=== PATIENT | female | born 2000 | race Caucasian/White ===

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

== ENCOUNTER 2018-07-11 09:15 | Emergency (ER) | payer OTHER ==
[2018-07-11 10:39] VITALS: BP 124/75
== END 2018-07-11 11:15 | disposition home or self-care (01) ==
LOC: UCCORT 09:15
DX: J45.901 Unspecified asthma with (acute) exacerbation (principal); H73.893 Other specified disorders of tympanic membrane, bilateral
CPT/HCPCS: 99212; G0463

== ENCOUNTER 2019-05-20 19:10 | Emergency (ER) | payer MEDICAID, OTHER ==
[2019-05-20 20:15] VITALS: BP 125/77
[2019-05-20] MEDS ORDERED: predniSONE TAB* 20 MG PO ONE ×2 (20:30→20:31)
--- NOTE | 2019-05-20 20:38 | UC ---
Ear Complaint HPI - HPI Summary HPI Summary: 18 yo female with bilateral otalgia x 3 days hx PETs age 1 no fever or chills mild nasal congestion no CP or SOB no cough - History of Current Complaint Chief Complaint: UCEar Stated Complaint: CHANO EAR PAIN Time Seen by Provider: 05/20/19 19:53 Hx Obtained From: Patient Hx Last Menstrual Period: 04/28/19 Onset/Duration: Gradual Onset, Lasting Days Severity Initially: Moderate Severity Currently: Moderate Pain Intensity: 6 Pain Scale Used: 0-10 Numeric Aggravating Factors: Nothing Alleviating Factors: Nothing Associated Signs/Symptoms: Positive: Hearing Loss - slight - Allergies/Home Medications Allergies/Adverse Reactions: Allergies Allergy/AdvReac Type Severity Reaction Status Date / Time aluminum Allergy Hives Verified 05/20/19 20:06 lactose Allergy Diarrhea Verified 05/20/19 20:06 nickel Allergy Hives Verified 05/20/19 20:06 zinc Allergy Hives Verified 05/20/19 20:06 Home Medications: Home Medications Ibuprofen TAB* [Advil TAB*] 600 mg PO Q6H PRN 05/20/19 [History Confirmed ] Loratadine 10 mg PO BEDTIME 05/20/19 [History Confirmed 05/20/19] Propranolol HCl 80 mg PO DAILY 05/20/19 [History Confirmed 05/20/19] PMH/Surg Hx/FS Hx/Imm Hx Previously Healthy: Yes Other History Of: Negative For: HIV, Hepatitis B, Hepatitis C - Surgical History Surgical History: Yes Surgery Procedure, Year, and Place: tubes in ears in past. carpal tunnel - Family History Known Family History: Positive: Cardiac Disease, Hypertension, Diabetes Negative: Renal Disease, Blood Disorder - Social History Alcohol Use: Occasionally Substance Use Type: None Smoking Status (MU): Never Smoked Tobacco Have You Smoked in the Last Year: No Household Exposure Type: Cigarettes - Immunization History Most Recent Influenza Vaccination: Not the 2017/2017 Season Vaccination Up to Date: Yes Review of Systems All Other Systems Reviewed And Are Negative: Yes Constitutional: Positive: Negative Skin: Positive: Negative Eyes: Positive: Negative ENT: Positive: Ear Ache Respiratory: Positive: Negative Cardiovascular: Positive: Negative Gastrointestinal: Positive: Negative Genitourinary: Positive: Negative Motor: Positive: Negative Neurovascular: Positive: Negative Musculoskeletal: Positive: Negative Neurological: Positive: Negative Psychological: Positive: Negative Physical Exam Triage Information Reviewed: Yes Appearance: Well-Appearing, No Pain Distress, Well-Nourished Vital Signs: Initial Vital Signs Temp 98.2 F 05/20/19 20:12 Pulse 77 05/20/19 20:12 Resp 20 05/20/19 20:12 BP 125/77 05/20/19 20:12 Pulse Ox 99 05/20/19 20:12 Vital Signs Reviewed: Yes Eyes: Positive: Conjunctiva Clear ENT: Positive: Hearing grossly normal, TM bulging - Right bulging, left retracted. Negative: Pharyngeal erythema, Nasal congestion, Nasal drainage, TMs normal Neck: Positive: Supple, Nontender, No Lymphadenopathy Respiratory: Positive: Lungs clear, Normal breath sounds, No respiratory distress Cardiovascular: Positive: RRR, No Murmur Ear Complaint Course/Dx - Differential Dx/Diagnosis Provider Diagnosis: Bilateral serous otitis media Discharge - Sign-Out/Discharge Documenting (check all that apply): Patient Departure All imaging exams completed and their final reports reviewed: No Studies - Discharge Plan Condition: Stable Disposition: HOME Prescriptions: predniSONE [Deltasone 20 MG TAB] 40 mg PO DAILY #6 tab Patient Education Materials: Serous Otitis Media (ED) Referrals: Tamika Muniz MD [Primary Care Provider] - 1 Week (if not better) Additional Instructions: recheck for new or worsening symptoms - Billing Disposition and Condition Condition: STABLE Disposition: Home
== END 2019-05-20 20:51 | disposition home or self-care (01) ==
LOC: UCCORT 19:10
DX: H65.93 Unspecified nonsuppurative otitis media, bilateral (principal); Z77.22 Contact with and (suspected) exposure to environmental tobacco smoke (acute) (chronic)
CPT/HCPCS: 99213; G0463; J7512

== ENCOUNTER 2019-06-04 18:00 | Emergency (ER) | payer OTHER ==
[2019-06-04 18:35] VITALS: BP 120/68
--- NOTE | 2019-06-04 18:38 | UC ---
Ear Complaint HPI - HPI Summary HPI Summary: BILATERAL EARACHE, HEAD CONGESTION, SORE THROAT AND COUGH FOR PAST FEW DAYS. NO FEVER, BUT CHILLS. TRIED SUDAFED AND IBUPROFEN PRN W/ NO RELIEF. - History of Current Complaint Chief Complaint: UCRespiratory Stated Complaint: SORE THROAT/COUGH/CONGESTION Time Seen by Provider: 06/04/19 18:29 Hx Obtained From: Patient Hx Last Menstrual Period: 05/07/19 ?: No Onset/Duration: Sudden Onset, Lasting Days Severity Initially: Moderate Severity Currently: Moderate Pain Intensity: 4 - Allergies/Home Medications Allergies/Adverse Reactions: Allergies Allergy/AdvReac Type Severity Reaction Status Date / Time aluminum Allergy Hives Verified 06/04/19 18:29 lactose Allergy Diarrhea Verified 06/04/19 18:29 nickel Allergy Hives Verified 06/04/19 18:29 zinc Allergy Hives Verified 06/04/19 18:29 PMH/Surg Hx/FS Hx/Imm Hx Previously Healthy: Yes Other History Of: Negative For: HIV, Hepatitis B, Hepatitis C - Surgical History Surgical History: Yes Surgery Procedure, Year, and Place: tubes in ears in past. carpal tunnel - Family History Known Family History: Positive: Cardiac Disease, Hypertension, Diabetes Negative: Renal Disease, Blood Disorder - Social History Alcohol Use: Occasionally Substance Use Type: None Smoking Status (MU): Never Smoked Tobacco Have You Smoked in the Last Year: No Household Exposure Type: Cigarettes - Immunization History Most Recent Influenza Vaccination: Not the 2016/2017 Season Vaccination Up to Date: Yes Review of Systems All Other Systems Reviewed And Are Negative: Yes ENT: Positive: Sore Throat, Ear Ache, Sinus Congestion Respiratory: Positive: Cough Neurological: Positive: Headache Is Patient Immunocompromised?: No Physical Exam Triage Information Reviewed: Yes Appearance: Ill-Appearing, Pain Distress, Obese Vital Signs: Initial Vital Signs Temp 98.3 F 06/04/19 18:31 Pulse 79 06/04/19 18:31 Resp 16 06/04/19 18:31 BP 120/68 06/04/19 18:31 Pulse Ox 99 06/04/19 18:31 Vital Signs Reviewed: Yes Eye Exam: Normal ENT: Positive: Pharyngeal erythema - wiht PND, Nasal congestion, TM bulging - right TM, Sinus tenderness - right frontal Dental Exam: Normal Neck exam: Normal Respiratory Exam: Normal Cardiovascular Exam: Normal Cardiovascular: Positive: RRR, No Murmur, Pulses Normal Abdominal Exam: Normal Musculoskeletal Exam: Normal Neurological Exam: Normal Psychological Exam: Normal Skin Exam: Normal Ear Complaint Course/Dx - Course Course Of Treatment: HX OBTAINED, EXAM PERFORMED ,MEDS REVIEWED, - Differential Dx/Diagnosis Differential Diagnosis/HQI/PQRI: Bronchitis, Cerumen Impaction, Otitis Externa, Otitis Media, Pharyngitis, Trauma, URI Provider Diagnosis: Sinusitis, Post-nasal drip Discharge - Sign-Out/Discharge Documenting (check all that apply): Patient Departure All imaging exams completed and their final reports reviewed: No Studies - Discharge Plan Condition: Stable Disposition: HOME Prescriptions: Azithromyxin JUAN RAMON (NF) [Z-Juan Ramon (Zithromax) 250 mg tabs #6] 2 tab PO .TODAY, THEN 1 DAILY #6 tab Patient Education Materials: Sinusitis (ED) Referrals: Tamika Muniz MD [Primary Care Provider] - Additional Instructions: 1. take the medication as prescribed. 2. Increase fluid intake and salt water gargles twice a day 3. Continue with the claritin daily 4. Follow up if not improving. - Billing Disposition and Condition Condition: STABLE Disposition: Home
== END 2019-06-04 18:54 | disposition home or self-care (01) ==
LOC: UCCORT 18:00
DX: J32.9 Chronic sinusitis, unspecified (principal); R09.82 Postnasal drip
CPT/HCPCS: 99212; G0463

== ENCOUNTER 2019-11-10 13:06 | Emergency (ER) | payer OTHER ==
[2019-11-10 13:50] VITALS: BP 102/63
--- NOTE | 2019-11-10 14:17 | UC ---
Respiratory Complaint HPI - HPI Summary HPI Summary: 18 yo female presents with URI symptoms. She tells me that over the last week has had sinus pain/pressure/congestion. Over the last 2 days has had chest congestion and feeling wheezing. She has a hx of asthma and has an albuterol inhaler at home that she has been using with good relief. She does not smoke. Denies fever, rash, SOB, chest pain, abdominal pain, n/v - History of Current Complaint Chief Complaint: UCGeneralIllness Stated Complaint: URI HEADACHE Time Seen by Provider: 11/10/19 14:17 Hx Obtained From: Patient Hx Last Menstrual Period: 10/23/19 Onset/Duration: Gradual Onset Severity Initially: Mild Severity Currently: Moderate Pain Intensity: 5 Pain Scale Used: 0-10 Numeric - Allergies/Home Medications Allergies/Adverse Reactions: Allergies Allergy/AdvReac Type Severity Reaction Status Date / Time aluminum Allergy Hives Verified 11/10/19 13:51 lactose Allergy Diarrhea Verified 11/10/19 13:51 nickel Allergy Hives Verified 11/10/19 13:51 zinc Allergy Hives Verified 11/10/19 13:51 PMH/Surg Hx/FS Hx/Imm Hx Respiratory History: Asthma Psychological History: Anxiety Other History Of: Negative For: HIV, Hepatitis B, Hepatitis C - Surgical History Surgical History: Yes Surgery Procedure, Year, and Place: tubes in ears in past. carpal tunnel right - Family History Known Family History: Positive: Cardiac Disease, Hypertension, Diabetes Negative: Renal Disease, Blood Disorder - Social History Lives: With Family Alcohol Use: Occasionally Substance Use Type: None Smoking Status (MU): Never Smoked Tobacco Have You Smoked in the Last Year: No Household Exposure Type: Cigarettes - Immunization History Most Recent Influenza Vaccination: Not the 2017/2017 Season Vaccination Up to Date: Yes Review of Systems All Other Systems Reviewed And Are Negative: No Constitutional: Positive: Negative Skin: Positive: Negative Eyes: Positive: Negative ENT: Positive: Nasal Discharge, Sinus Congestion, Sinus Pain/Tenderness Respiratory: Positive: Cough Cardiovascular: Positive: Negative Gastrointestinal: Positive: Negative Neurological: Positive: Negative Psychological: Positive: Negative Physical Exam - Summary Physical Exam Summary: GENERAL: NAD. WDWN. No pain distress. SKIN: No rashes, sores, lesions, or open wounds. HEENT: Head: AT/NC Eyes: Conjunctiva clear without inflammation or discharge. Ears: Hearing grossly normal. TMs intact, no bulging, erythema, or edema. Nose: Nasal mucosa pink and moist. TTP maxillary and frontal sinus. Throat: Posterior oropharynx without exudates, erythema, or tonsillar enlargement. Uvula midline. NECK: Supple. Nontender. No lymphadenopathy. CHEST: Mild wheezing throughout. No r/r. No accessory muscle use. Breathing comfortably and in no distress. CV: RRR. Pulses intact. Cap refill <2seconds NEURO: Alert. PSYCH: Age appropriate behavior. Triage Information Reviewed: Yes Vital Signs: Initial Vital Signs Temp 98.8 F 11/10/19 13:48 Pulse 78 11/10/19 13:48 Resp 17 11/10/19 13:48 BP 102/63 11/10/19 13:48 Pulse Ox 100 11/10/19 13:48 Vital Signs Reviewed: Yes Respiratory Course/Dx - Course Course Of Treatment: Suspect bronchitis. - Differential Dx/Diagnosis Provider Diagnosis: Bronchitis Discharge ED - Sign-Out/Discharge Documenting (check all that apply): Patient Departure All imaging exams completed and their final reports reviewed: No Studies - Discharge Plan Condition: Stable Disposition: HOME Prescriptions: DOXYcycline CAP(*) [DOXYcycline 100MG CAP(*)] 100 mg PO BID #14 cap predniSONE 20 mg TAB [Deltasone 20 MG TAB*] 40 mg PO DAILY #10 tab Patient Education Materials: Acute Bronchitis (ED) Referrals: Tamika Muniz MD [Primary Care Provider] - Additional Instructions: If you develop a fever, shortness of breath, chest pain, new or worsening symptoms - please call your PCP or go to the ED immediately. Continue using your albuterol inhaler at home - Billing Disposition and Condition Condition: STABLE Disposition: Home - Attestation Statements Provider Attestation: I was available for consult. This patient was seen by the CHRIS. The patient was not presented to, seen by, or examined by me. -Gavin
== END 2019-11-10 14:41 | disposition home or self-care (01) ==
LOC: UCEAST 13:06
DX: J40 Bronchitis, not specified as acute or chronic (principal); J45.909 Unspecified asthma, uncomplicated; R09.81 Nasal congestion; Z91.011 Allergy to milk products; Z91.09 Other allergy status, other than to drugs and biological substances
CPT/HCPCS: 99212; G0463

== ENCOUNTER 2019-12-04 17:01 | Emergency (ER) | payer OTHER ==
[2019-12-04 17:26] VITALS: BP 125/74
--- NOTE | 2019-12-04 18:03 | UC ---
FLU HPI - HPI Summary HPI Summary: 19 yo female presents with flu-like symptoms. She tells me that for the last 4 days she has had body aches, fatigue, nausea, sinus congestion, and a dry cough. 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 She has been taking OTC tylenol cold medication with no change in her symptoms. She did not get a flu shot this year. Denies fever, SOB, rash, abdominal pain, vomiting, dysuria. - History of Current Complaint Chief Complaint: UCGeneralIllness Stated Complaint: CONGESTION,EAR PAIN,SORE THROAT Time Seen by Provider: 12/04/19 18:03 Hx Obtained From: Patient Hx Last Menstrual Period: Onset/Duration: Sudden Onset Severity Currently: Mild Severity Initially: Mild Pain Intensity: 4 - Allergy/Home Medications Allergies/Adverse Reactions: Allergies Allergy/AdvReac Type Severity Reaction Status Date / Time aluminum Allergy Hives Verified 12/04/19 17:27 lactose Allergy Diarrhea Verified 12/04/19 17:27 nickel Allergy Hives Verified 12/04/19 17:27 zinc Allergy Hives Verified 12/04/19 17:27 Home Medications: Home Medications Ibuprofen TAB* [Motrin TAB* 600 MG] 600 mg PO Q6H PRN 12/04/19 [History Confirmed 12/04/19] PMH/Surg Hx/FS Hx/Imm Hx Respiratory History: Asthma Psychological History: Anxiety, Depression Other History Of: Negative For: HIV, Hepatitis B, Hepatitis C - Surgical History Surgical History: Yes Surgery Procedure, Year, and Place: tubes in ears in past. carpal tunnel right - Family History Known Family History: Positive: Cardiac Disease, Hypertension, Diabetes Negative: Renal Disease, Blood Disorder - Social History Alcohol Use: Weekly Substance Use Type: None Smoking Status (MU): Never Smoked Tobacco Have You Smoked in the Last Year: No Household Exposure Type: Cigarettes - Immunization History Most Recent Influenza Vaccination: Not the 2017/2017 Season Vaccination Up to Date: Yes Review of Systems All Other Systems Reviewed And Are Negative: No Constitutional: Positive: Fatigue, Other - Body aches Skin: Positive: Negative Eyes: Positive: Negative ENT: Positive: Sinus Congestion Respiratory: Positive: Cough Cardiovascular: Positive: Negative Gastrointestinal: Positive: Negative Neurological/Mental Status: Positive: Negative Psychological: Positive: Negative Physical Exam - Summary Physical Exam Summary: GENERAL: NAD. WDWN. No pain distress. SKIN: No rashes, sores, lesions, or open wounds. HEENT: Head: AT/NC Eyes: EOM intact. Conjunctiva clear without inflammation or discharge. Ears: Hearing grossly normal. TMs intact, no bulging, erythema, or edema. Nose: Nasal mucosa pink and moist. NTTP maxillary and frontal sinus. Throat: Posterior oropharynx without exudates, erythema, or tonsillar enlargement. Uvula midline. NECK: Supple. Nontender. No lymphadenopathy. CHEST: CTAB. No r/r/w. No accessory muscle use. Breathing comfortably and in no distress. CV: RRR. Pulses intact. Cap refill <2seconds NEURO: Alert. PSYCH: Age appropriate behavior. Triage Information Reviewed: Yes Vital Signs: Initial Vital Signs Temp 99.0 F 12/04/19 17:22 Pulse 66 12/04/19 17:22 Resp 16 12/04/19 17:22 BP 125/74 12/04/19 17:22 Pulse Ox 99 12/04/19 17:22 Laboratory Tests 12/04/19 12/04/19 17:59 18:01 Influenza A (Rapid) Negative Influenza B (Rapid) Negative Group A Strep Rapid Negative Vital Signs Reviewed: Yes Flu Course/Dx - Course Course Of Treatment: POC strep and flu negative. Suspect viral illness - advised supportive care - Differential Dx/Diagnosis Provider Diagnosis: Viral syndrome Discharge ED - Sign-Out/Discharge Documenting (check all that apply): Patient Departure All imaging exams completed and their final reports reviewed: No Studies - Discharge Plan Condition: Good Disposition: HOME Patient Education Materials: Viral Syndrome (ED) Forms: *Work Release Referrals: Tamika Muniz MD [Primary Care Provider] - Additional Instructions: FLU AND STREP TEST NEGATIVE TODAY Your symptoms are likely from a viral infection. Viral infections do not respond to antibiotics and are limited to the treatment of symptoms. Viral infections typically run their course in 7-10 days. Drink plenty of fluids, especially if you are running any fever. Use salt water gargles several times a day. Take over the counter acetaminophen (Tylenol) or ibuprofen (Advil, Motrin) according to directions as needed for pain or fever. You may also use Chloraseptic spray or Cepacol lonzenges according to directions which contain a numbing medication and can provide some temporary relief from a sore throat. Return here or follow up with your primary care provider in 7 days if symptoms persist. - Billing Disposition and Condition Condition: GOOD Disposition: Home - Attestation Statements Provider Attestation: This patient was not seen by me. I was available for consult. Chart reviewed. [place]
[2019-12-04 18:12] LABS: Influenza A Molecular Negative (Negative); Influenza B Molecular Negative (Negative)
== END 2019-12-04 18:30 | disposition home or self-care (01) ==
LOC: UCEAST 17:01
DX: B34.9 Viral infection, unspecified (principal); J45.909 Unspecified asthma, uncomplicated; R09.81 Nasal congestion; R05 Cough; R53.83 Other fatigue; R11.0 Nausea; Z91.09 Other allergy status, other than to drugs and biological substances; Z91.011 Allergy to milk products
CPT/HCPCS: 87651; 99211; G0463

== ENCOUNTER 2019-12-15 09:28 | Emergency (ER) | payer OTHER ==
[2019-12-15 09:53] VITALS: BP 133/74
--- NOTE | 2019-12-15 11:06 | UC ---
Throat Pain/Nasal Mike HPI - HPI Summary HPI Summary: 19 yo female presents with URI symptoms. She tells me that for the last ~2 weeks she has had sinus pain/pressure/congestion and post nasal drip. Over the last 4-5 days has had an intermittently productive cough with yellow sputum with intermittent wheezing. She has a hx of asthma and has an albuterol inhaler at home that she has been using with good relief. Taking OTC nyquill with good relief. Denies fever, chills, sore throat, SOB, chest pain, n/v - History of Current Complaint Chief Complaint: UCGeneralIllness Stated Complaint: HEAD / CHEST CONGESTION Time Seen by Provider: 12/15/19 11:05 Hx Obtained From: Patient Hx Last Menstrual Period: 11/28/18 Onset/Duration: Gradual Onset Severity: Moderate Pain Intensity: 5 Pain Scale Used: 0-10 Numeric - Allergies/Home Medications Allergies/Adverse Reactions: Allergies Allergy/AdvReac Type Severity Reaction Status Date / Time aluminum Allergy Hives Verified 12/15/19 09:53 lactose Allergy Diarrhea Verified 12/15/19 09:53 nickel Allergy Hives Verified 12/15/19 09:53 zinc Allergy Hives Verified 12/15/19 09:53 Home Medications: Home Medications Escitalopram Oxalate [Lexapro 10 mg] 30 mg PO BEDTIME 07/11/18 [History Confirmed 12/04/19] Norgestimate-Ethinyl Estradiol [Tri-Linyah] 1 tab PO BEDTIME 07/11/18 [History Confirmed 12/04/19] hydrOXYzine HCL [Hydroxyzine HCl] 50 mg PO DAILY PRN 07/11/18 [History Confirmed 12/04/19] traZODone TAB* [Desyrel TAB*] 50 mg PO BEDTIME 07/11/18 [History Confirmed 12/04] Fluticasone-Salmeterol 250-50* [Advair Diskus 250-50*] 1 puff INH QPM 08/15/18 [ History Confirmed 12/04/19] Loratadine 10 mg PO BEDTIME 05/20/19 [History Confirmed 12/04/19] Propranolol HCl 80 mg PO DAILY 05/20/19 [History Confirmed 12/04/19] Ibuprofen TAB* [Motrin TAB* 600 MG] 600 mg PO Q6H PRN 12/04/19 [History Confirmed 12/04/19] Albuterol HFA INHALER* [Ventolin HFA Inhaler*] 2 puff INH Q6H PRN #1 mdi [Rx] Amoxicillin PO (*) [Amoxicillin 875 MG (*)] 875 mg PO BID #14 tab 12/15/19 [Rx] PMH/Surg Hx/FS Hx/Imm Hx Respiratory History: Asthma Psychological History: Anxiety, Depression Other History Of: Negative For: HIV, Hepatitis B, Hepatitis C - Surgical History Surgical History: Yes Surgery Procedure, Year, and Place: tubes in ears in past. carpal tunnel right - Family History Known Family History: Positive: Cardiac Disease, Hypertension, Diabetes Negative: Renal Disease, Blood Disorder - Social History Lives: With Family Alcohol Use: Weekly Substance Use Type: None Smoking Status (MU): Never Smoked Tobacco Have You Smoked in the Last Year: No Household Exposure Type: Cigarettes - Immunization History Most Recent Influenza Vaccination: Not the 2016/2017 Season Vaccination Up to Date: Yes Review of Systems All Other Systems Reviewed And Are Negative: No Constitutional: Positive: Negative Skin: Positive: Negative Eyes: Positive: Negative ENT: Positive: Nasal Discharge, Sinus Congestion, Sinus Pain/Tenderness Respiratory: Positive: Cough Cardiovascular: Positive: Negative Gastrointestinal: Positive: Negative Neurological/Mental Status: Positive: Negative Psychological: Positive: Negative Physical Exam - Summary Physical Exam Summary: GENERAL: NAD. WDWN. No pain distress. SKIN: No rashes, sores, lesions, or open wounds. HEENT: Head: AT/NC Eyes: EOM intact. Conjunctiva clear without inflammation or discharge. Ears: Hearing grossly normal. TMs intact, no bulging, erythema, or edema. Nose: Nasal mucosa mildly swollen and erythematous without discharge. TTP maxillary and frontal sinus. Positive post nasal drip Throat: Posterior oropharynx without exudates, erythema, or tonsillar enlargement. Uvula midline. NECK: Supple. Nontender. No lymphadenopathy. CHEST: CTAB. No r/r/w. No accessory muscle use. Breathing comfortably and in no distress. CV: RRR. Pulses intact. NEURO: Alert. PSYCH: Age appropriate behavior. Triage Information Reviewed: Yes Vital Signs: Initial Vital Signs Temp 98 F 12/15/19 09:50 Pulse 86 12/15/19 09:50 Resp 16 12/15/19 09:50 BP 133/74 12/15/19 09:50 Pulse Ox 100 12/15/19 09:50 Vital Signs Reviewed: Yes Throat Pain/Nasal Course/Dx - Course Course Of Treatment: URI - given length of symptoms and failure of OTC care will treat with anbx at this time. - Differential Dx/Diagnosis Provider Diagnosis: URI (upper respiratory infection) Discharge ED - Sign-Out/Discharge Documenting (check all that apply): Patient Departure All imaging exams completed and their final reports reviewed: No Studies - Discharge Plan Condition: Stable Disposition: HOME Prescriptions: Albuterol HFA INHALER* [Ventolin HFA Inhaler*] 2 puff INH Q6H PRN #1 mdi PRN Reason: Sob/Wheezing Amoxicillin PO (*) [Amoxicillin 875 MG (*)] 875 mg PO BID #14 tab Patient Education Materials: Sinusitis (ED) Forms: *Work Release Referrals: Tamika Muniz MD [Primary Care Provider] - Additional Instructions: If you develop a fever, shortness of breath, chest pain, new or worsening symptoms - please call your PCP or go to the ED immediately. - Billing Disposition and Condition Condition: STABLE Disposition: Home
== END 2019-12-15 11:15 | disposition home or self-care (01) ==
LOC: UCEAST 09:28
DX: J06.9 Acute upper respiratory infection, unspecified (principal); J45.909 Unspecified asthma, uncomplicated; F41.9 Anxiety disorder, unspecified; F32.9 Major depressive disorder, single episode, unspecified; Z79.899 Other long term (current) drug therapy; Z91.09 Other allergy status, other than to drugs and biological substances; Z91.011 Allergy to milk products
CPT/HCPCS: 99212; G0463